=== PATIENT | male | born 1985 | race Caucasian/White ===

== ENCOUNTER 2020-08-06 14:56 | Emergency (ER) | payer BC, OTHER ==
[2020-08-06] MEDS ORDERED: IBUPROFEN600 MG PO (17:03)
[2020-08-06] MEDS ORDERED: BACTROBAN OINT22 GM EXT (17:03)
== END 2020-08-06 17:06 | disposition home or self-care (01) ==
LOC: ER1 14:56
DX: S61.210A Laceration without foreign body of right index finger without damage to nail, initial encounter (principal); W25.XXXA Contact with sharp glass, initial encounter; Z23 Encounter for immunization
CPT/HCPCS: 12001; 90471; 90715; 99283

== ENCOUNTER 2020-08-13 11:12 | Emergency (ER) | payer BC, OTHER ==
[~2020-08-13 11:12] MED LIST: BACTROBAN OINT22 GM EXT; IBUPROFEN600 MG PO
== END 2020-08-13 12:43 | disposition home or self-care (01) ==
LOC: ER1 11:12
DX: S61.210D Laceration without foreign body of right index finger without damage to nail, subsequent encounter (principal); E11.9 Type 2 diabetes mellitus without complications; Z79.4 Long term (current) use of insulin
CPT/HCPCS: 99281